=== PATIENT | female | born 1980 | race Caucasian/White ===

== ENCOUNTER → 2017-04-19 | Day surgery (SDC) | payer OTHER ==
--- NOTE | 2017-04-19 15:46 | Operative Report ---
Operative/Inv Procedure Report Surgery Date: 04/19/17 Name of Procedure: Suction D&C Pre-Operative Diagnosis: Undesired at 7 weeks Post-Operative Diagnosis: Same Estimated Blood Loss: less than 50ml Surgeon/Pre Billing Clinician: Cheko Omer MD Anesthesia: local monitored anesthesi, block Complications: None Condition: Stable Operative/Procedure Note Note: The patient was taken to the operating room and placed in dorsal supine position. Anesthesia was administered without difficulty. She was then placed in the dorsal lithotomy position and prepped and draped in the usual sterile fashion. A sterile speculum was placed in the patient's vagina. A single-tooth tenaculum was applied to the anterior lip of the cervix. 10 mL of 1% lidocaine paracervical block is then administered. The cervix was then serially dilated to accommodate an 8 mm suction curette. The curette was inserted into the uterus and the suction device was activated. 3 passes with the suction curette were performed and a moderate amount of products of conception was noted. The suction curette was removed and gentle curettage of the uterus was performed until a gritty texture was noted in all 4 quadrants. The suction curette was then reinserted and the device activated to remove all remaining clots and debris from the uterus. All instruments were then removed from the patient's vagina. Excellent hemostasis was noted. All counts were reported to be correct Findings: Moderate amount of products of conception Pelvic exam revealed a uterus that was slightly enlarged, anteverted, approximately 8 weeks in size, with normal adnexa Discharge Disposition: Same Day Admissions
== END ==
LOC: STS 12:00
DX: Z33.2 Encounter for elective termination of pregnancy (principal); F17.200 Nicotine dependence, unspecified, uncomplicated
CPT/HCPCS: J2250